=== PATIENT | male | born 1945 | race Caucasian/White ===

== ENCOUNTER 2018-02-13 08:52 | Outpatient (CLI) | payer MEDICARE, BC ==
--- NOTE | 2018-02-13 11:28 | MRI ---
MRI LEFT SHOULDER WITHOUT CONTRAST: Date: 02/13/18 HISTORY: Pain. Left rotator cuff repair 3 years ago. Loss of range of motion. COMPARISON: None. FINDINGS: Biceps Tendon: There is extensive extraarticular biceps tenosynovitis with synovitis. There is also interstitial spl it tear of the biceps tendon and extraarticular and intraarticular portion. There is medial subluxati on with hypertrophy on the lesser tuberosity through tears of the superior glenohumeral ligament and coracohumeral ligament. There are also deep fiber subscapularis tendon tears. Labrum: There is extensive degeneration of the anterior inferior labrum with tearing, as well as severe degen eration of the superior labrum with tearing. Rotator Cuff: Extensive tendinosis of the subscapularis with deep fiber tearing of the craniad fibers. Prior supras pinatus repair with a focal full thickness perforation at the footplate posterior fibers of supraspin atus measuring 8.0 mm in AP dimension, for which the tendon in itself is split, with a 1.5 cm gap. Th ere is extensive interstitial tearing of the anterior and posterior fibers of supraspinatus tendon wi th edema and fluid tracking to the myotendinous junction with interstitial intramuscular cyst. There is also extensive undersurface fraying and partial tearing of the infraspinatus tendon with articular surface partial tearing of 30-40% throughout the tendon. Muscles: There is approximately 30-40% atrophy of the supraspinatus muscle. No significant atrophy of the infr aspinatus muscle. There is extensive edema of the anterior deltoid muscle and mid deltoid muscle. Soft Tissues: Large joint effusion. Moderate synovitis. There is synovitis along the biceps tendon sheath. IMPRESSION: 1. Full thickness perforation of the mid 8.0 mm supraspinatus tendon with fibers retracted 1.5 cm. T his is a U-shaped central tear. 2. Extensive undersurface partial tearing and fraying of the anterior and posterior fibers of supras pinatus tendon with interstitial tears with fluid tracking along the myotendinous junction. 3. Severe intraarticular and extraarticular tenosynovitis with longitudinal interstitial split tear of the biceps tendon intra and extraarticular course. There is also tear of the biceps shin, coraco humeral and superior glenohumeral ligaments with medial perching on the lesser tuberosity with subcho ndral cyst formation. 4. Severe tearing circumferentially of the glenoid labrum which is degenerative in nature. 5. Abnormal edema within the anterior mid fibers of the deltoid muscle, could be from fluid tracking from the insufficient glenohumeral joint capsule. 6. 30-40% atrophy of the supraspinatus muscle. 7. The supraspinatus suture anchor is likely proud of the cortex 4.0 mm with extensive overlying sub acromial/subdeltoid bursal effusion. This also may be some of the cause of irritation of the overlyin g deltoid musculature. POS: [facility]
== END 2018-02-13 08:53 | disposition home or self-care (01) ==
LOC: SCSMRI 08:52
PROVIDERS: ATTEND Orthopaedic Surgery
DX: M25.512 Pain in left shoulder (principal); M75.102 Unspecified rotator cuff tear or rupture of left shoulder, not specified as traumatic; S43.402A Unspecified sprain of left shoulder joint, initial encounter; M65.812 Other synovitis and tenosynovitis, left shoulder; R60.0 Localized edema

== ENCOUNTER 2018-02-27 10:01 | Outpatient (CLI) | payer MEDICARE, BC ==
--- NOTE | 2018-02-27 12:16 | RAD ---
CHEST PA AND LATERAL: Date: 02/27/18 HISTORY: 73-year-old male for preoperative evaluation. COMPARISON: 10/07/13. FINDINGS: Heart size is normal. The lungs are clear. No pneumonia, edema, pleural effusion, or other acute proc ess. IMPRESSION: No acute intrathoracic disease. POS: [facility]
[2018-02-27 14:14] LABS: #Eosinphils 0.1 thou/uL (0.0-0.7); #Lymphocytes 1.1 thou/uL (1.20-3.40); #Monocytes 1.1 thou/uL (0.11-0.59); #Neutrophils 8.3 thou/uL (1.40-6.50); %Basophils 0.3 % (0.0-1.0); %Eosinophils 0.8 % (0.0-10.0); %Lymphocytes 10.3 % (21.0-51.0); %Neutrophils 78.6 % (42.0-75.0); Hemoglobin 13.1 g/dL (14.0-18.0); Mean Corpuscular HGB CONC 32.8 g/dL (32.0-36.0); Mean Corpuscular Hemoglobin 29.2 pg (27.0-31.0); Mean Platelet Volume 8.5 fL (7.4-10.4); Platelet Count 352 thou/uL (130-400); RBC Distribution Width 11.6 % (11.5-14.5); Red Blood Cell (RBC) Count 4.48 mill/uL (4.70-6.10); White Blood Cell (WBC) Count 10.6 thou/uL (4.8-10.8)
[2018-02-27 14:34] LABS: Anion Gap 16 mmol/L (10-20); BUN (Urea Nitrogen) 14 mg/dL (8.4-25.7); Calc. Creatinine Clearance 0 mL/min (70-130); Calcium 9.7 mg/dL (7.8-10.44); Carbon Dioxide 23 mmol/L (23-31); Chloride 96 mmol/L (98-107); Estimated GFR-MDRD 78; Glucose 73 mg/dL (83-110); Potassium 4.7 mmol/L (3.5-5.1); Sodium 130 mmol/L (136-145)
== END 2018-02-27 10:02 | disposition home or self-care (01) ==
LOC: LABBT 10:01
PROVIDERS: ATTEND Orthopaedic Surgery
DX: Z01.818 Encounter for other preprocedural examination (principal); M75.102 Unspecified rotator cuff tear or rupture of left shoulder, not specified as traumatic
CPT/HCPCS: 71046; 80048; 85025

== ENCOUNTER 2018-03-01 06:07 | Day surgery (SDC) | payer MEDICARE, BC ==
[2018-02-27 10:20] VITALS: BMI 26.2
[2018-03-01] MEDS ORDERED: Ropivacaine 0.2% HCl/PF 20 ML ONE (06:26)
[2018-03-01] MEDS ORDERED: Midazolam HCl 2 mg/2 ml Vial ONE (06:26)
[2018-03-01] MEDS ORDERED: Fentanyl 100 MCG/2 ML VIAL ONE (06:26)
[2018-03-01] MEDS ORDERED: CEFAZOLIN/Water 2 GM/20 ML SYRINGE ONE (07:05)
[2018-03-01] MEDS ORDERED: Vancomycin HCl 1.5 GM, Admixture Fee 1 EACH in Sodium Chloride 0.9% 250 ML 300 ML IVPB SCH (07:15)
[2018-03-01] MEDS ORDERED: Fentanyl 100 MCG/2 ML VIAL IV PRN (07:27)
[2018-03-01] MEDS ORDERED: Ondansetron HCl/PF 4 MG/2 ML Vial IVP PRN (07:27)
[2018-03-01] MEDS ORDERED: HYDROcodone/Acetaminophen 5/325 mg Tablet PO PRN ×2 (07:27)
[2018-03-01] MEDS ORDERED: traMADol HCl 50 MG TAB PO PRN ×2 (07:27)
[2018-03-01] MEDS ORDERED: Ropivacaine 0.2% 550 ML 550 ML NERVE BLCK SCH (07:27)
[2018-03-01] MEDS ORDERED: Zolpidem Tartrate 5 MG TAB PO PRN (07:27)
[2018-03-01] MEDS ORDERED: Promethazine HCl 25 MG/ML VIAL IM PRN (07:27)
[2018-03-01] MEDS ORDERED: Ropivacaine 0.5% HCl/PF (150 MG/30 ML VIAL) ONE (12:21)
--- NOTE | 2018-03-01 12:28 | OP ---
DATE OF PROCEDURE: 03/01/2018 PREOPERATIVE DIAGNOSIS: Left chronic attritional rotator cuff tear, left shoulder. POSTOPERATIVE DIAGNOSIS: Left chronic attritional rotator cuff tear, left shoulder. PROCEDURE: Mini open left primary rotator cuff repair with biceps tenodesis. SURGEON: Papa Olivera M.D. COSTUME DESIGN TEACHER: Chano Suarez PA-C. ANESTHESIA: General via endotracheal tube augmented with interscalene block. COMPONENTS USED: #2 Cottony Dacron and Arthrex biceps tenodesis, 8 mm screw. FINDINGS: Attritional tear at the insertion of the supraspinatus tendon attritional in nature, appea ring chronic. Thready biceps tendon, primarily proximal aspect with significant hypertrophic synoviu m and synovial fluid noted in the subacromial space. ESTIMATED BLOOD LOSS: Less than 20 mL. DRAINS: None. SPECIMENS: Gram stain culture and sensitivity was obtained. COMPLICATIONS: None. COUNTS: Correct. INDICATIONS FOR SURGERY: Braden is a 73-year-old white male who had a recrudescence of left shoulder p ain for the last 3-4 months. He has had arthroscopic repair performed greater than 6 years ago and h e has done relatively well from that until more recently he has had a progression of pain. MRI was o btained which demonstrated supraspinatus insertional tear and the presence of a titanium anchor witho ut any complication. PROCEDURE IN DETAIL: After informed consent was obtained in the preoperative holding area, the patie russ was taken to the operative suite where he received preoperative antibiotics. He was positioned ap propriately in the modified beach chair position. The left shoulder was then prepped and draped in u sual sterile fashion. A timeout was called prior to incision, all members of surgical team agreed up on site, surgeon and patient. Once this was completed, sharp knife was then used to incise in a mini open approach. The local bleeding was controlled with Bovie electrocautery. The subacromial space was then encountered abruptly with emergence of joint fluid. Culture was sent. The proximal anterior deltoid was taken down with Bovie electrocautery and the deltoid split was then carried out, exposing the humeral head and the attritional tear. This was freshened up with a blade . A right angle was then used to find the biceps tendon proximally. This was exposed distally in th e gutter at the tuberosity and the Arthrex pin was placed over drilled with an 8 mm drill, the biceps tendon was then transplanted into with an interference screw proximally. This completed our tenodes is. Attention was then turned to primary repair using the cottony Dacron of the rotator cuff supraspinatu s tendon. This was oversewn with a baseball stitch and anchored with a lateral PushLock 4.5 mm absor bable screw. The wound was then copiously irrigated with normal saline. Primary closure was accompl ished with 0 Vicryl in an interrupted fashion. Deltoid was repaired with #1 Ethibond. #1 Vicryl wa s then used to close the deltoid fascia, subcutaneous layer was then closed with #1 Vicryl, subcutane ous layer was then closed with 2-0 interrupted Vicryl. Stainless steel theodore used to reapproximate the skin. The procedure was terminated without any complications. Sterile dressing was applied. T he patient was awakened in the operative suite and taken to the recovery room in stable condition.
[2018-03-01] MEDS ORDERED: Glycopyrrolate 0.2 MG/ML 5 ML SYRINGE ONE (13:15)
[2018-03-01] MEDS ORDERED: Lidocaine 1% PF 5 ML VIAL ONE (13:15)
[2018-03-01] MEDS ORDERED: PROPOFOL 200 MG/20 ML VIAL ONE (13:15)
== END 2018-03-01 12:50 | disposition home or self-care (01) ==
LOC: SDC 06:07
PROVIDERS: ATTEND Orthopaedic Surgery
PROC: 0LQ20ZZ Repair Left Shoulder Tendon, Open Approach (ICD-10-PCS; principal; 2018-03-01)
PROC: 0LS20ZZ Reposition Left Shoulder Tendon, Open Approach (ICD-10-PCS; 2018-03-01)
DX: M75.102 Unspecified rotator cuff tear or rupture of left shoulder, not specified as traumatic (principal); I10 Essential (primary) hypertension; E78.00 Pure hypercholesterolemia, unspecified; I48.91 Unspecified atrial fibrillation; K21.9 Gastro-esophageal reflux disease without esophagitis; M10.9 Gout, unspecified; Z79.01 Long term (current) use of anticoagulants; Z79.899 Other long term (current) drug therapy; Z98.890 Other specified postprocedural states
CPT/HCPCS: 23412; 23430; 81003; 87070; 87075; 87205; 97139; A4306; C1713 ×2; G8984; G8985; G8986; 51702; 96372; J0131; J2001; J2250; J2704; J2795; J3010; J3370; J7050; Q0162

== ENCOUNTER 2018-03-01 22:02 | Emergency (ER) | payer MEDICARE, BC ==
[2018-03-01 23:10] LABS: Bilirubin Negative (Negative); Blood, Urine Negative (Negative); Clarity Clear (Clear); Glucose, Urine (Dipstick) Negative (Negative); Leukocyte Negative (Negative); Nitrite Negative (Negative); Protein, Urine (Dipstick) Negative (Neg-Trace); Urobilinogen 0.2 mg/dL (0.2-1.0)
[2018-03-01] MEDS ORDERED: HYDROcodone/Acetaminophen 10/325 mg Tablet ONE (23:18)
[2018-03-01] MEDS ORDERED: Ondansetron ODT 4 MG TAB ONE (23:23)
== END 2018-03-01 23:29 | disposition home or self-care (01) ==
LOC: SCSER 22:02
DX: M96.89 Other intraoperative and postprocedural complications and disorders of the musculoskeletal system (principal); R33.8 Other retention of urine; M25.512 Pain in left shoulder; I10 Essential (primary) hypertension; I48.91 Unspecified atrial fibrillation; E78.00 Pure hypercholesterolemia, unspecified; Z79.01 Long term (current) use of anticoagulants; Z79.899 Other long term (current) drug therapy
CPT/HCPCS: 81003; Q0162

== ENCOUNTER 2018-03-04 20:26 | Emergency (ER) | payer MEDICARE, BC ==
[2018-03-04 20:58] LABS: Bilirubin Negative (Negative); Blood, Urine Large (Negative); Clarity Slightly Cloudy (Clear); Glucose, Urine (Dipstick) Negative (Negative); Leukocyte Small (Negative); Nitrite Negative (Negative); Protein, Urine (Dipstick) 100 mg/dL (Neg-Trace); Specific Gravity, Urine 1.015 (1.005-1.030); Urobilinogen 0.2 mg/dL (0.2-1.0); pH, Urine 7.5 (5.0-9.0)
[2018-03-04 21:13] LABS: Bacteria/HPF None Seen HPF (None Seen); Hyaline Casts/LPF 0-3 HYALINE CAST LPF (0-3 Hyaline); RBC/HPF 21-50 HPF (0-3); Squamous Epithelial 0-3 HPF (0-3); WBC/HPF 0-3 HPF (0-3)
== END 2018-03-04 22:35 | disposition home or self-care (01) ==
LOC: SCSER 20:26
DX: T83.84XA Pain due to genitourinary prosthetic devices, implants and grafts, initial encounter (principal); I10 Essential (primary) hypertension; I48.91 Unspecified atrial fibrillation; E78.00 Pure hypercholesterolemia, unspecified; Z79.899 Other long term (current) drug therapy; Z79.01 Long term (current) use of anticoagulants
CPT/HCPCS: 81003; 81015; 87086; 99283

== ENCOUNTER 2018-08-14 07:02 | Outpatient (CLI) | payer MEDICARE, BC ==
--- NOTE | 2018-08-14 10:16 | CT ---
CT OF ABDOMEN AND PELVIS WITH CONTRAST CT ENTEROGRAPHY: Clinical history: Lower abdominal pain. FINDINGS: The imaged lung bases reveal minimal volume loss and/or scar. The left kidney is surgically absent. T here is a cyst of the lateral segment left hepatic lobe. Spleen, pancreas and adrenal glands are unre markable. There is a focal region of telescoping of bowel which is centered at the sigmoid colon which results in wall prominence although no surrounding inflammation of evidence of free air. No evidence of small bowel obstruction. Non-obstructed small bowell loops are adherent to the ventral abdominal wall, ind icative of adhesions. There is osseous degenerative change. Diffuse vascular calcification is presen t, and within the infrarenal abdominal aorta there is focal ectasia of the aortic lumen. IMPRESSION: 1. Findings most consistent with a colocolic intussusception at the sigmoid colon. The chronicity of which is not further discerned on the basis of this exam. Follow up with colonoscopy would prove usef ul in this regard. 2. There is no abnormal bowel dilatation. 3. Left hepatic lobe cyst. 4. Diffuse vascular disease with aortic ectasia. POS: [facility]
[2018-08-14] MEDS ORDERED: Iopamidol 370 76% 100 ML VIAL ONE (15:56)
== END 2018-08-14 07:03 | disposition home or self-care (01) ==
LOC: CT 07:02
PROVIDERS: ATTEND Physician Assistant Medical
DX: R10.30 Lower abdominal pain, unspecified (principal); Z87.891 Personal history of nicotine dependence; Z87.19 Personal history of other diseases of the digestive system; K76.89 Other specified diseases of liver; I77.811 Abdominal aortic ectasia; I99.9 Unspecified disorder of circulatory system
CPT/HCPCS: 74177; 82565

== ENCOUNTER 2018-11-27 00:34 | Observation (INO) | payer MEDICARE, BC ==
[2018-11-27] MEDS ORDERED: Aspirin Chewable 81 MG TAB ONE (01:03)
[2018-11-27] MEDS ORDERED: Nitroglycerin 2% Ointment 1 INCH/1 GM Packet ONE (01:03)
[2018-11-27 01:21] LABS: #Basophils 0.1 thou/uL (0.0-0.2); #Eosinphils 0.2 thou/uL (0.0-0.7); #Lymphocytes 1.2 thou/uL (1.20-3.40); #Monocytes 0.7 thou/uL (0.11-0.59); #Neutrophils 6.4 thou/uL (1.40-6.50); %Basophils 1.2 % (0.0-1.0); %Lymphocytes 14.1 % (21.0-51.0); %Monocytes 8.4 % (0.0-10.0); %Neutrophils 74.3 % (42.0-75.0); Hemoglobin 14.5 g/dL (14.0-18.0); Mean Corpuscular HGB CONC 33.6 g/dL (32.0-36.0); Mean Corpuscular Hemoglobin 28.4 pg (27.0-31.0); Mean Corpuscular Volume 84.7 fL (78.0-98.0); Mean Platelet Volume 10.3 fL (7.4-10.4); Platelet Count 223 thou/uL (130-400); RBC Distribution Width 12.6 % (11.5-14.5); Red Blood Cell (RBC) Count 5.09 mill/uL (4.70-6.10); White Blood Cell (WBC) Count 8.6 thou/uL (4.8-10.8)
[2018-11-27 01:42] LABS: ALT (SGPT) 16 U/L (8-55); AST (SGOT) 18 U/L (5-34); Alkaline Phosphatase 90 U/L (40-150); Anion Gap 14 mmol/L (10-20); BUN (Urea Nitrogen) 12 mg/dL (8.4-25.7); Bilirubin, Total 0.3 mg/dL (0.2-1.2); CK (CPK) 137 U/L (30-200); Calc. Creatinine Clearance 0 mL/min (70-130); Calcium 9.6 mg/dL (7.8-10.44); Carbon Dioxide 24 mmol/L (23-31); Chloride 95 mmol/L (98-107); Estimated GFR-MDRD 87; Globulin 2.5 g/dL (2.4-3.5); Glucose 121 mg/dL (83-110); Lipase 40 U/L (8-78); Potassium 3.6 mmol/L (3.5-5.1); Protein, Total 6.5 g/dL (5.8-8.1); Sodium 129 mmol/L (136-145)
--- NOTE | 2018-11-27 08:21 | RAD ---
PORTABLE AP CHEST X-RAY: 11/27/2018 HISTORY: Chest pain. COMPARISON: 02/27/2018 FINDINGS: The cardiac silhouette and pulmonary vasculature are within normal limits. The lungs are clear. Anc hor screws overly the humeral heads bilaterally. Degenerative changes are noted in the spine. Vascu lar calcification is seen in the thoracic aorta. IMPRESSION: No acute cardiopulmonary process. POS: [facility]
[2018-11-27 15:14] VITALS: BP 146/70; TEMP 97.7; BMI 26.9
[2018-11-27] MEDS ORDERED: Acetaminophen 325 MG TAB PO PRN (17:05)
[2018-11-27] MEDS ORDERED: hydrALAZINE 20 MG/ML VIAL SLOW IVP PRN (17:05)
[2018-11-27] MEDS ORDERED: Sodium Chloride 0.9% 1,000 ML IV SCH (17:15)
--- NOTE | 2018-11-27 20:23 | HP ---
PRIMARY CARE PHYSICIAN: Bal Damico MD [employer]ITION STORAGE SUPERINTENDENT: Saturnino Cheema MD CHIEF COMPLAINT: Palpitations. HISTORY OF PRESENT ILLNESS: Mr. Maria is a very pleasant 73-year-old gentleman. 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 He has a history of chronic atrial fibrillation and says that his atrial fibrillation was under control after he had been placed on Multaq and had not had any problems with it for the past couple of years. He says that last night around 10:00 p.m. he started noticing some palpitations and his heart rate felt irregular during this time, it caused him to feel very anxious. He says he tried to hold out, but then around midnight, he decided to go to the emergency room to have it evaluated. He says by the time he walked into the emergency room, his heart rate converted back into sinus. He says that his encouraged him to stay to be evaluated. Currently, he does not have any complaints. He denies any chest pain, no shortness of breath, no PND, no orthopnea. He does have some lower extremity edema which is chronic for him. He does note that sometimes he does have some belching after he eats and feels a little bit nauseated. He says this happens pretty much after any type of meal and then occasionally he will just get some belching when he gets extremely hungry. He had told Dr. Damico about this who placed him on pantoprazole, which has helped some, and this was about six months ago and continuing on into today. He denies, however, having any type of nausea or shortness of breath or chest pressure when he walks or if he exerts himself and says that he and his walked about a mile yesterday without any difficulty. The patient also says that he was set up to have an ablation about a year ago. He went through the preop process, had a stress test which was negative. Said everything was set up, but he "chickened out" and did not have it done. REVIEW OF SYSTEMS: All systems were reviewed and are negative except for that mentioned in history of present illness. PAST MEDICAL HISTORY: Significant for hypertension, atrial fibrillation, hypercholesterolemia, gastroesophageal reflux disease. PAST SURGICAL HISTORY: He has had a ruptured colon due to diverticulitis and had to have surgery for that. He then had an obstruction after that and had to have lysis of adhesions, then he herniated through the incision of the previous surgery. He had a nephrectomy 35 years ago, a hernia repair and shoulder surgery x3. ALLERGIES: NO KNOWN DRUG ALLERGIES. SOCIAL HISTORY: He is . He has 4 children. He is a nonsmoker and nondrinker. 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 His , Angelica, is his surrogate decision maker and he would like to be a full code. FAMILY HISTORY: Significant for heart disease, his mother also had atrial fibrillation. Osteoarthritis also runs in the family. CURRENT MEDICATIONS: Include; 1. Pantoprazole 40 mg daily. 2. Multaq 400 mg a day. 3. Allopurinol 100 mg twice a day. 4. Xarelto 20 mg daily. 5. Losartan and hydrochlorothiazide 50/12.5 mg daily. PHYSICAL EXAMINATION: GENERAL: He is alert and oriented. He appears to be in no acute distress and he is well developed and well nourished. VITAL SIGNS: Blood pressure 146/70, heart rate 59, respiratory rate of 20, temperature is 97.7. HEENT: Pupils are equal, round, and reactive. Extraocular muscles are intact. Sclerae are anicteric. Throat, there is no erythema, no exudates. NECK: No adenopathy, no bruits. LUNGS: Clear to auscultation. There is no wheezing, no rales, no rhonchi. CARDIOVASCULAR: He has a normal S1, S2. I did not appreciate an S3 or S4. No murmurs, clicks, or rubs. ABDOMEN: Soft, it is nontender and nondistended. Positive for bowel sounds. There is no rebound, no guarding. No organomegaly. EXTREMITIES: He has trace pedal edema. There is no erythema, no warmth. He did have some mild discoloration. NEUROLOGIC: His cranial nerves 2 through 12 are grossly intact. His muscle strength is 5/5 in both his lower extremities. SKIN AND INTEGUMENT: He does have some varicose veins, but no skin changes, no rash. IMAGING: On his EKG in the emergency room, it was sinus rhythm, the rate was 65 and there were no acute ST wave changes. This is by my reading. Also had a chest x-ray. There is no acute infiltrate or effusion. Heart size is normal. LABORATORY DATA: Sodium was 129, potassium 3.6, chloride is 95, CO2 is 24, BUN of 12, creatinine 0.86, glucose is 121. Troponin is less than 0.010. White blood cell count is 8.6, hemoglobin 14.5, hematocrit is 43.1, and platelet count is 223. ASSESSMENT: 1. This is a pleasant 73-year-old gentleman who presents to the emergency room with palpitations with a known history of atrial fibrillation. This is while he has been on Multaq. He will be placed in observation. We will continue to monitor him on telemetry. Check thyroid function tests and consult Cardiology for further recommendations. 2. Hypertension. His blood pressure seems to be well controlled. We will continue the losartan. However, we will change this to the losartan without the diuretic due to the mild hyponatremia and discussed this with the patient. 3. We will continue Xarelto for stroke prevention and further recommendations will be as per cardiology. Job ID: [id number]
[2018-11-27] MEDS ORDERED: Atorvastatin Calcium 10 MG TAB PO SCH (21:00)
[2018-11-27] MEDS ORDERED: Rivaroxaban 10 MG TAB PO SCH (21:00)
[2018-11-28] MEDS ORDERED: Dronedarone HCl 400 MG TAB PO SCH (08:00)
[2018-11-28] MEDS ORDERED: Losartan 25 MG TAB PO SCH (09:00)
== END 2018-11-27 17:37 | disposition home or self-care (01) ==
LOC: SCSER 00:34 → ERHOLD 04:17 → 2SW 15:08
PROVIDERS: ADMIT Internal Medicine; ATTEND Internal Medicine
DX: R00.2 Palpitations (principal); I48.2 Chronic atrial fibrillation; R60.0 Localized edema; I10 Essential (primary) hypertension; E78.00 Pure hypercholesterolemia, unspecified; K21.9 Gastro-esophageal reflux disease without esophagitis; E87.1 Hypo-osmolality and hyponatremia; Z79.01 Long term (current) use of anticoagulants; Z79.899 Other long term (current) drug therapy; Z88.6 Allergy status to analgesic agent; Z98.890 Other specified postprocedural states; Z90.5 Acquired absence of kidney
CPT/HCPCS: 71045; 80053; 82550; 83690; 84484 ×2; 85025; 93005; 99285; G0378 ×2; 36415

== ENCOUNTER 2020-03-10 11:42 | Emergency (ER) | payer MEDICARE, BC, OTHER ==
[2020-03-10 18:04] LABS: SARS-CoV-2 MS2 Positive; SARS-CoV-2 N Gene Negative; SARS-CoV-2 S Gene Negative; SARS-CoV-2 orf1ab Negative
== END 2020-03-10 12:09 | disposition home or self-care (01) ==
LOC: ERS 11:42
DX: R50.9 Fever, unspecified (principal); Z20.828 Contact with and (suspected) exposure to other viral communicable diseases; R19.7 Diarrhea, unspecified; I10 Essential (primary) hypertension; I48.91 Unspecified atrial fibrillation; E78.00 Pure hypercholesterolemia, unspecified; Z79.01 Long term (current) use of anticoagulants; Z79.899 Other long term (current) drug therapy
CPT/HCPCS: 99284; U0003; 87635